=== PATIENT | male | born 1995 | race Asian ===

== ENCOUNTER 2016-12-05 08:40 | Inpatient (IN) | payer MEDICAID ==
[~2016-12-05] VITALS: Ht 157.5 cm; Wt 55.3 kg
[2016-12-05 09:27] LABS: BASOPHILS % (AUTO) 0.5 % (0.0-2.0); EOSINOPHILS % (AUTO) 0 % (1.0-6.0); HEMATOCRIT 48.8 % (41-53); HEMOGLOBIN 16.2 g/dL (13.5-17.5); MEAN CORPUSCULAR HEMOGLOBIN 28.6 pg (26.0-34.0); MEAN CORPUSCULAR HGB CONC 33.1 G/dL (31.0-37.0); MEAN CORPUSCULAR VOLUME 86 fL (80-100); MONOCYTES # (AUTO) 0.4 K/uL (0.1-1.0); MONOCYTES % (AUTO) 4.1 % (2.0-9.0); NEUTROPHILS # (AUTO) 9.3 K/uL (1.8-7.7); NEUTROPHILS % (AUTO) 86.4 % (40.0-70.0); PLATELET COUNT (AUTO) 261 K/uL (150-450); RED BLOOD CELL COUNT(AUTO) 5.65 MIL/uL (4.50-5.90); RED CELL DISTRIBUTION WIDTH 13.3 % (11.5-14.5); WHITE BLOOD COUNT (AUTO) 10.7 K/uL (4.5-11.0)
[2016-12-05 09:36] LABS: ANION GAP 11 mmol/L (8-16); CALCIUM, TOTAL 9.2 mg/dL (8.8-10.5); CARBON DIOXIDE 29 mmol/L (22-29); CHLORIDE 100 mmol/L (98-107); CREATININE 1.12 mg/dL (0.60-1.30); GLOMERULAR FILTR. RATE CALC > 60 mL/min (>60); POTASSIUM 3.3 mmol/L (3.5-5.1); SODIUM SERUM 140 mmol/L (136-145); UREA NITROGEN, BLOOD 10 mg/dL (7-18)
[2016-12-05 09:42] LABS: ALANINE AMINOTRANSFERASE 23 U/L (12-78); ALBUMIN 4.9 g/dL (3.4-5.0); ASPARTATE AMINOTRANSFERASE 18 U/L (15-37); BILIRUBIN,TOTAL 0.8 mg/dL (0.1-1.0)
[2016-12-05] MEDS ORDERED: LORazepam 2 MG TABLET PO ONE (11:30)
[2016-12-05] MEDS ORDERED: HALOPERIDOL 5 MG TABLET PO ONE (11:30)
[2016-12-05] MEDS ORDERED: LORazepam 2 MG TABLET PO PRN (12:45)
[2016-12-05] MEDS ORDERED: HALOPERIDOL 5 MG TABLET PO PRN (12:45)
[2016-12-05] MEDS ORDERED: ZOLPIDEM TARTRATE 10 MG TABLET PO PRN (12:45)
[2016-12-05 18:00] VITALS: BP 116/65
[2016-12-05 18:18] LABS: GLUCOSE,POINT OF CARE 112 MG/DL (70-110)
[2016-12-05] MEDS ORDERED: PNEUMOCOCCAL VACCINE POLYVALENT 0.5 ML VIAL [PPSV23] IM ONE (18:30)
[2016-12-05] MEDS ORDERED: INFLUENZA VIRUS VACCINE QVS 2016-17 (3YR+)/PF 60 MCG/0.5 ML SYRINGE IM ONE (18:30)
[2016-12-05] MEDS ORDERED: POTASSIUM CHLORIDE 20 MEQ ER TABLET PO ONE (18:30)
[2016-12-06 07:46] LABS: HEMOGLOBIN A1C 5.1 % (4.5-6.2)
[2016-12-06] MEDS: BENZTROPINE MESYLATE 0.5 MG TABLET PO SCH ×2 (08:12→16:59)
[2016-12-06] MEDS: NICOTINE 14 MG/24 HOUR PATCH TD SCH (08:12)
[2016-12-06] MEDS: BACITRACIN/POLYMYXIN B 15 GM OINTMENT TP SCH ×2 (08:12→17:00)
[2016-12-06] MEDS: HALOPERIDOL 5 MG TABLET PO SCH ×2 (08:12→16:59)
[2016-12-06 08:24] VITALS: BP 125/87
[2016-12-06] MEDS ORDERED: MAGNESIUM HYDROXIDE SUSPENSION 30 ML UDCUP PO PRN (08:30)
[2016-12-06 16:13] VITALS: BP 124/70
[2016-12-07 08:20] VITALS: BP 114/61
[2016-12-07] MEDS ORDERED: POTASSIUM CHLORIDE 20 MEQ ER TABLET PO ONE (09:00)
[2016-12-07] MEDS: BACITRACIN/POLYMYXIN B 15 GM OINTMENT TP SCH (09:33)
[2016-12-07] MEDS: NICOTINE 14 MG/24 HOUR PATCH TD SCH (09:33)
== END 2016-12-07 15:20 | disposition home or self-care (01) | DRG 751 ==
LOC: EMS 08:43 → EEVIPCON 08:43 → B3A 15:00
PROVIDERS: ADMIT Psychiatry & Neurology Psychiatry; ATTEND Psychiatry & Neurology Psychiatry
DX: F29 Unspecified psychosis not due to a substance or known physiological condition (principal); E11.9 Type 2 diabetes mellitus without complications; R45.851 Suicidal ideations; F20.9 Schizophrenia, unspecified; F15.90 Other stimulant use, unspecified, uncomplicated; Z72.89 Other problems related to lifestyle; Z79.899 Other long term (current) drug therapy; Z79.84 Long term (current) use of oral hypoglycemic drugs; J45.909 Unspecified asthma, uncomplicated; F17.210 Nicotine dependence, cigarettes, uncomplicated; F12.90 Cannabis use, unspecified, uncomplicated; Z91.5 Personal history of self-harm
CPT/HCPCS: 82962; 83036; 90471; 99285; G0480